=== PATIENT | male | born 1950 | race Hispanic/Latino ===

== ENCOUNTER 2017-01-07 09:50 | Day surgery (SDC) | payer MEDICARE ==
[~2017-01-07 09:50] MED LIST: ANCEF/STERILE WATER 2 GM/20 ML IV NR; FLAGYL 500 MG/100 ML 500 MG/100 ML BAG IV NR
[2017-01-07] MEDS ORDERED: VERSED IV PRN (11:18)
[2017-01-07] MEDS ORDERED: PEPCID IV SCH (11:19)
--- NOTE | 2017-01-07 11:26 | Anesthesia Consultation ---
Anesthesia Consult and Med Hx Date of service: 01/07/17 - Airway Anesthetic Teeth Evaluation: Good (veneers on front teeth and caps on others) ROM Head & Neck: Adequate Mental/Hyoid Distance: Adequate Mallampati Class: Class III Intubation Access Assessment: Possibly Difficult - Pulmonary Exam CTA: Yes - Cardiac Exam Cardiac Exam: RRR - Pre-Operative Health Status ASA Pre-Surgery Classification: ASA3 Proposed Anesthetic Plan: General - Pulmonary Hx Smoking: Yes (STOPPED X 30 YRS- 1 PPD X 10 YRS) Hx Sleep Apnea: No (RJ PRE SCREEN HIGH RISK) - Cardiovascular System Hx Hypertension: Yes (X 2 YRS) Hx Heart Attack/AMI: Yes (1994- WITH MEDS) Hx Heart Murmur: Yes - Central Nervous System Hx Psychiatric Problems: Yes (anxiety) - Other Systems Hx Alcohol Use: Yes (BEER DAILY / WEEKLY) Hx Cancer: No
--- NOTE | 2017-01-07 11:27 | Anesthesia Day of Surgery ---
Anesthesia Day of Surgery - Day of Surgery Patient Examined: Yes Patient H&P Reviewed: Yes Patient is NPO: Yes
[2017-01-07] MEDS ORDERED: DIPRIVAN 10 MG/ML IV ONE (11:59)
[2017-01-07] MEDS ORDERED: SUBLIMAZE ONE (11:59)
[2017-01-07] MEDS ORDERED: ZEMURON IV ONE (11:59)
[2017-01-07] MEDS ORDERED: XYLOCAINE MPF 2% ONE (11:59)
[2017-01-07] MEDS ORDERED: NACL 0.9% 1000 ML 1,000 ML IV SCH (12:00)
[2017-01-07] MEDS ORDERED: MARCAINE-EPI/PF 0.5%-1:200,000 INFILTRATI ONE ×2 (12:01→13:00)
[2017-01-07] MEDS ORDERED: DECADRON ONE (12:10)
[2017-01-07] MEDS ORDERED: ZOFRAN ONE (12:10)
[2017-01-07] MEDS ORDERED: NEOSTIGMINE ONE (12:37)
[2017-01-07] MEDS ORDERED: ROBINUL ONE ×2 (12:37)
[2017-01-07] MEDS ORDERED: DILAUDID ONE (12:38)
[2017-01-07] MEDS ORDERED: TORADOL ONE (13:03)
[2017-01-07] MEDS: DILAUDID IV PRN ×2 (13:46→14:00)
--- NOTE | 2017-01-07 14:05 | Operative Report ---
Operative Report Operative Report: Date of procedure: 01/07/2017 Pre-operative diagnosis: Dilated appendix, chronic appendicitis Post-operative diagnosis: Same Procedure name(s): Laparoscopic appendectomy Surgeon: Roxy Arita MD Biomass Facilitator: None Anesthesia: Gen., 0.25% Marcaine EBL: Minimal Complications: None Instrument Count: Correct Indications: This is a 66-year-old male who was found to have a massively dilated appendix to 1.9 centimeters concerning for tumor versus chronic appendicitis. He was offered the above-named procedures both diagnostic and therapeutic modality. The risks and benefits of discussed until all questions were answered. He was subsequently brought to the OR. Findings: Severely dilated appendix. Procedure: The patient was placed supine upon the table. After adequate anesthesia was reached we verified the patient. Bilateral SCDs were placed. He was prepped and draped in the usual sterile fashion. A 5 mm incision was made at the level of the umbilicus. A Veress needle was placed at this position. The abdomen was then insufflated to 15 mmHg. A 5 mm port was then placed in the umbilical incision. We then introduced the camera and examined the abdomen. Under direct vision and after infiltration of local anesthetic, placed a 5 mm lower midline port and a 12 mm left lower quadrant port. We identified the appendix at the base of the cecum. We created a defect in the meso-appendix and passed a [employer] flex powered laparoscopic stapler through the defect. This was fired transecting the appendix. We then transected the meso appendix using a Harmonic scalpel. The specimen was placed in Endo Catch bag and removed from the abdomen. We insured hemostasis. All port sites were then closed using a 4-0 Monocryl in a subcuticular fashion. We also closed the 12 mm port using a 0 Vicryl on a suture passer device. The wounds were bandaged sterilely. The patient was awakened extubated and transferred to PACU in no apparent distress.
--- NOTE | 2017-01-07 14:08 | Short Stay Summary ---
Short Stay Documentation Date of service: 01/07/17 - History H&P: dictated - Allergies and Medications Current Medications: Allergies oxycodone Allergy (Verified 01/03/17 11:44) Rash Home Medications Medication Instructions Recorded Confirmed Last Taken Type Aspirin [Adult Low Dose Aspirin EC] 81 mg PO DAILY 01/03/17 01/03/17 1 Week Ago History Hydrochlorothiazide [HCTZ] 25 mg PO QDAY 01/03/17 01/03/17 01/06/17 History Ibuprofen [Advil 100 MG tab] 200 mg PO Q6H PRN 01/03/17 01/03/17 1 Week Ago History LORazepam [Ativan] 0.5 mg PO Q6H PRN 01/03/17 01/03/17 01/06/17 History Latanoprost 0.005% [Xalatan 0.005%] 1 drop OP QPM 01/03/17 01/03/17 Unknown History Multivits,Ca,Min/Iron/FA/Lycop 1 each PO DAILY 01/03/17 01/03/17 01/06/17 History [Centrum Men's Tablet] Simvastatin [Zocor TAB] 40 mg PO QHS 01/03/17 01/03/17 01/06/17 History Active Medications Cefazolin Sodium (Ancef/Sterile Water 2 Gm/20 Ml) 2 gm IV PREOP NR Stop: 01/07/17 23:59 Famotidine (Pepcid) 20 mg IV PREOP CHAVO Stop: 01/07/17 23:59 Last Admin: 01/07/17 11:41 Dose: 20 mg Hydromorphone HCl (Dilaudid) 0.5 mg IV Q10MIN PRN PRN Reason: Pain , Severe (7-10) Stop: 01/10/17 11:38 Last Admin: 01/07/17 13:46 Dose: 0.5 mg Metronidazole (Flagyl 500 Mg/100 Ml) 500 mg in 100 mls @ 200 mls/hr IV PREOP NR Stop: 01/07/17 23:59 Sodium Chloride (Nacl 0.9% 1000 Ml) 1,000 mls @ 75 mls/hr IV DIRECT CHAVO Last Admin: 01/07/17 11:40 Dose: 75 mls/hr Midazolam HCl (Versed) 2 mg IV PREOP PRN PRN Reason: Anxiety Last Admin: 01/07/17 11:41 Dose: 2 mg - Brief post op/procedure progress note Date of procedure: 01/07/17 Pre-op diagnosis: dilated appendix, chronic appendicitis Post-op diagnosis: same Procedure: Laparoscopic appendectomy Surgeon: HARI BROWN Estimated blood loss: minimal Pathology: list (appendix) Specimen disposition: to lab Condition: stable - Disposition Condition at discharge: Stable Disposition: - TO HOME OR SELFCARE Short Stay Discharge Plan Activity: advance as tolerated Diet: regular Wound: keep clean and dry Follow up with: ELVIN BLOOM MD [Primary Care Provider] - 7 Days HARI BROWN MD [Staff Physician] - 7 Days Prescriptions: HYDROcodone/APAP 5-325 [Franklin 5-325 mg TAB] 1 each PO Q6HR PRN #30 tablet PRN Reason: Pain
--- NOTE | 2017-01-07 14:15 | Post Anesthesia Evaluation ---
- Post Anesthesia Evaluation Patient Participated: Yes Airway Patent: Yes Stable Respiratory Function: Yes Nausea/Vomiting: No Temp > 96.8F: Yes Pain Manageable: Yes Adequeate Hydration: Yes Anesthesia Complications: No Block Receding Appropriately: Not Applicable Patient on Ventilator: No
[2017-01-07 14:45] VITALS: BP 141/85
== END 2017-01-07 14:56 | disposition home or self-care (01) ==
LOC: OR 09:50
PROVIDERS: ATTEND Surgery
DX: K36 Other appendicitis (principal); K38.8 Other specified diseases of appendix; F41.9 Anxiety disorder, unspecified; K21.9 Gastro-esophageal reflux disease without esophagitis; I25.2 Old myocardial infarction; I10 Essential (primary) hypertension; Z88.5 Allergy status to narcotic agent; Z79.82 Long term (current) use of aspirin; Z79.899 Other long term (current) drug therapy; Z98.890 Other specified postprocedural states; Z72.89 Other problems related to lifestyle; Z87.891 Personal history of nicotine dependence
CPT/HCPCS: 36415; 44970; 84132; 88304; J0690; J1100; J1170; J1885; J2250; J2405; J2704; J2710; J3010; J7030